=== PATIENT | female | born 1965 | race Caucasian/White ===

== ENCOUNTER 2017-07-03 21:10 | Emergency (ER) | payer OTHER ==
--- NOTE | 2017-07-03 21:31 | PDOC ---
History of Present Illness - General History Source: Patient Exam Limitations: No Limitations <Dasia Pena - Last Filed: 07/03/17 21:49> - General History Source: Patient Exam Limitations: No Limitations - History of Present Illness Initial Comments: 07/03/17 22:12 This is a 51-year-old female who comes in complaining of several days of intermittent headaches. Patient takes Motrin for the headaches and they resolved. Patient has a history of migraine headaches but said these headaches are different. Patient took Motrin for her headache but it did not resolve today. In addition to that patient purchase some [id number] homeopathic sinus medication and took after which she became anxious and developed some chest tightness there was no associated nausea, diaphoresis or shortness of breath. There was some discomfort in her left arm also. Patient denies any history of similar chest pain in the past. Patient said she's been under tremendous amount of stress she has been very stressed out and anxious lately. Patient called EMS and was given oxygen with improvement in her symptoms. Patient otherwise is healthy and denies any history of hypertension, high cholesterol, diabetes, smoking, illegal drug use. Patient does have a family history of coronary artery disease her father in his 70s. PAST MEDICAL HISTORY: no significant history PAST SURGICAL HISTORY: no significant history FAMILY HISTORY: no pertinant history SOCIAL HISTORY: Pt lives with family and is employed. MEDICATIONS: reviewed ALLERGIES: As per nursing notes Review of Systems General: No fevers or chills, no weakness, no weight loss HEENT: No change in vision. No sore throat,. No ear pain CardioVascular: No chest pain or shortness of breath Respiratory:No cough, or wheezing. Gastrointestinal: no nausea, vomitting, diarrhea or constipation, No rectal bleeding Genitourinary: No dysuria, hematuria, or frequency Musculoskeletal: No joint or muscle pain or swelling Neurologic: No headache, vertigo, dizziness or loss of consciousness Psychiatric: nor depression Skin: No rashes or easy bruising Endocrine: no increased thirst or abnormal weight change Allergic: no skin or latex allergy All other systems reviewed and normal Exam: General: Well-nourished well-developed individual, no acute distress HEENT: Throat: Normal, tonsils normal, no erythema or exudate Neck: Supple, no meningeal signs, no lymphadenopathy Eyes::Pupils equal reactive and round, extraocular motion intact Chest: Nontender to palpation Cardiac: S1-S2 normal, regular rate and rhythm, no murmurs rubs or gallops Respiratory: Lungs clear to auscultation bilateral Abdomen: Soft, nondistended, normal bowel sounds, nontender to palpation diffusely Extremities: Warm, dry, no cyanosis, clubbing, or edema Skin: No rashes Neuro: Alert and oriented x3, CN II - XII intact, nonfocal exam with normal strength, normal sensation, normal reflexes, normal gait, Psych: Normal mood and affect 07/03/17 22:45 Reevaluation Patient's chest pain is completely resolved as well as her headache at this time Patient's EKG showed normal sinus rhythm at a rate of 76, normal intervals no acute ST-T wave changes a completely normal EKG Patient's troponin was nondetectable Patient's heart score was 2 Assessment and plan: This is a 51-year-old female with headache and some chest discomfort most likely secondary to stress and anxiety. Patient was given Tylenol here in the emergency room with complete relief of her symptoms. Patien had a nondetectable troponin and a heart score of 2. Patient was reassured that this most likely secondary to stress and anxiety however I recommended that she also follow-up with her primary care doctor for consideration of referral to a buildings and grounds director for a stress test given her family history. Patient discharged home with her family <Danya Gomez I - Last Filed: 07/03/17 22:50> - General Chief Complaint: Chest Pain Stated Complaint: HEADACHE/CHEST PAIN Time Seen by Provider: 07/03/17 21:15 Past History <Dasia Pena - Last Filed: 07/03/17 21:49> - Suicide/Smoking/Psychosocial Hx Smoking History: Unknown if ever smoked Have you smoked in the past 12 months: No Hx Alcohol Use: No Drug/Substance Use Hx: No Substance Use Type: None Hx Substance Use Treatment: No <Danya Gomez I - Last Filed: 07/03/17 22:50> - Past Medical History Allergies/Adverse Reactions: Allergies Allergy/AdvReac Type Severity Reaction Status Date / Time No Known Allergies Allergy Verified 07/29/15 16:48 Heart Score/ECG Review - History History: Slightly suspicious - Electrocardiogram EKG: Normal - Age Age: 45-65 - Risk Factors Based on the list above the patient has:: 1-2 risk factors - Troponin Troponin: </= normal limit - Score Heart Score - Total: 2 <Danya Gomez I - Last Filed: 07/03/17 22:50> *DC/Admit/Observation/Transfer <Dasia Pena - Last Filed: 07/03/17 21:49> <Danya Gomez I - Last Filed: 07/03/17 22:50> Diagnosis at time of Disposition: Tension headache, Atypical chest pain - Discharge Dispostion Disposition: HOME Condition at time of disposition: Stable - Referrals Referrals: Eduar Munoz MD [Primary Care Provider] - - Patient Instructions Additional Instructions: Tylenol or Motrin as needed for the headaches. Try to reduce the stress in her life. Follow-up with your primary care doctor for referral to a buildings and grounds director to have a stress test. Return to the emergency department immediately with ANY new, persistent or worsening symptoms. Continue any medications as previously prescribed by your physician. You should follow up with your primary doctor as soon as possible regarding today's emergency department visit. . Please make sure your doctor reviews the results of your emergency evaluation. Thank you for coming to the Emergency Department today for your care. It was a pleasure to see you today. Please note that your evaluation is INCOMPLETE until you follow-up with your doctor. - Post Discharge Activity
[2017-07-03] MEDS ORDERED: ACETAMINOPHEN 1000 MG/100 ML VIAL (NON FORMULARY) IVPB ONE (21:59)
[2017-07-03 22:15] VITALS: BP 137/87; PULSE 83; TEMP 98.5; BMI 22.3
--- NOTE | 2017-07-07 19:55 | EKG ---
Test Reason : Blood Pressure : / mmHG Vent. Rate : 076 BPM Atrial Rate : 076 BPM P-R Int : 132 ms QRS Dur : 088 ms QT Int : 384 ms P-R-T Axes : 033 072 065 degrees QTc Int : 432 ms NORMAL SINUS RHYTHM NORMAL ECG NO PREVIOUS ECGS AVAILABLE Confirmed by KIRBY WASHINGTON MD ([id number]) on 07/07/2017 7:54:51 PM Referred By: DR SMITH Confirmed By:KIRBY WASHINGTON MD
== END 2017-07-03 23:12 | disposition home or self-care (01) ==
LOC: FER 21:10
PROC: 3E033NZ Introduction of Analgesics, Hypnotics, Sedatives into Peripheral Vein, Percutaneous Approach (ICD-10-PCS; principal; 2017-07-03)
DX: G44.209 Tension-type headache, unspecified, not intractable (principal); R07.89 Other chest pain
CPT/HCPCS: 36415; 82550; 84484; 93005; 99282-25

== ENCOUNTER 2021-05-16 16:03 | Emergency (ER) | payer OTHER ==
[2021-05-16 16:39] VITALS: BP 125/83; PULSE 66; TEMP 98.8; BMI 22.3
[2021-05-18 02:07] LABS: SARS-CoV-2 NAA Not Detected (Not Detected)
== END 2021-05-16 16:50 | disposition home or self-care (01) ==
LOC: FER 16:03
DX: Z11.52 Encounter for screening for COVID-19 (principal)
CPT/HCPCS: 99285-25; C9803; U0003; U0005